=== PATIENT | female | born 1955 | race African-American/Black ===

== ENCOUNTER 2016-11-04 18:08 | Emergency (ER) | payer OTHER ==
[2016-11-04 15:10] LABS: BE (BASE EXCESS) 2.2 MEQ/L (0 +/- 2.5); CARBOXYHEMOGLOBIN 1.6 % (0-3); DEVICE Nasal Cannula 2.5; HCO3 (ACTUAL BICARBONATE) 26.9 MEQ/L (23-27); HEMOBLOGIN CONTENT 14.2 G/DL (12-16); INSTRUMENT SERIAL # 8087; METHEMOGLOBIN 0.2 % (0-3); O2 CONTENT 18.8 VOL% (18-24); OPERATOR ID 14335; PCO2 (CO2 TENSION) 42 MMHG (35-45); PO2 (O2 TENSION) 79 MMHG (79-93); SAMPLE Arterial; pH 7.42 (7.37-7.43)
[2016-11-04 15:11] LABS: ALLENS TEST Pos
[2016-11-04 16:55] LABS: BASOPHILS 0.1 %; BASOPHILS ABSOLUTE 0.01 10/3/uL (0.0-0.16); EOSINOPHILS 0.4 %; EOSINOPHILS ABSOLUTE 0.03 10/3/uL (0.0-0.53); ER CBC TAT 0 Hrs 12 Mins; HEMOGLOBIN 14.3 g/dL (12.0-16.0); IMMATURE GRANULOCYTES 0.1 %; IMMATURE GRANULOCYTES ABSOLUTE 0.01 10/3/uL (0.0-0.11); LYMPHOCYTES 66.4 %; LYMPHOCYTES ABSOLUTE 5.65 10/3/uL (0.67-4.30); MEAN CORPUS HGB CONC 32.5 g/dL (32.0-36.0); MEAN CORPUSCULAR HEMOGLOB 29.8 pg (26.0-34.0); MEAN CORPUSCULAR VOLUME 91.7 fL (80-100); MONOCYTES 7.5 %; MONOCYTES ABSOLUTE 0.64 10/3/uL (0.21-1.20); NEUTROPHILS 25.5 %; NEUTROPHILS ABSOLUTE 2.17 10/3/uL (2.02-8.40); PLATELET COUNT 264 10/3/uL (150-400); RBC DISTRIBUTION WIDTH 14.1 % (12.0-16.0); WHITE BLOOD CELLS 8.5 10/3/uL (4.5-10.5)
[2016-11-04 16:56] LABS: MANUAL DIFF NO %
[2016-11-04 17:02] LABS: PARTIAL THROMBO TIME 25.2 SEC (22.5-37.2); PROTIME (NOT ORD) 12.9 SEC (12.0-14.5)
[2016-11-04 17:07] LABS: ALBUMIN 3.9 G/DL (3.5-5.0); ALKALINE PHOSPHATASE 46 U/L (45-117); BUN (BLOOD UREA NITROGEN) 13 MG/DL (6-23); CALCIUM, SERUM 9.3 MG/DL (8.5-10.4); CHEST PAIN PROFILE TAT 0 Hrs 24 Mins; CHLORIDE, SERUM 102 MMOL/L (96-112); CO2 (CARBON DIOXIDE) 31 MMOL/L (24-34); CREATININE 0.94 MG/DL (0.55-1.02); DIRECT BILIRUBIN < 0.1 MG/DL (0.0-0.4); GFR AFRICAN AMERICAN 75 ML/MIN (>=60); GFR NON AFRICAN AMERICAN 65 ML/MIN (>=60); GLUCOSE, SERUM 103 MG/DL (60-99); INDIRECT BILIRUBIN(NOT ORDER) 0.3 MG/DL (0.1-0.9); POTASSIUM, SERUM 3.6 MMOL/L (3.5-5.3); SGOT(AST) 22 U/L (5-40); SGPT(ALT) 23 U/L (5-65); SODIUM, SERUM 143 MMOL/L (135-148); TOTAL BILIRUBIN 0.4 MG/DL (0-1.2); TOTAL PROTEIN 7.7 G/DL (6.0-8.5); TROPONIN I <0.02 NG/ML (<0.05)
[2016-11-04 17:13] LABS: ER DIFF TAT 0 Hrs 30 Mins; LYMPHOCYTES 71 %; LYMPHOCYTES ABSOLUTE (CALC) 6.04 10/3/uL (0.67-4.30); MONOCYTES 5 %; MONOCYTES ABSOLUTE (CALC) 0.43 10/3/uL (0.21-1.20); NEUTROPHILS ABSOLUTE (CALC) 2.04 10/3/uL (2.02-8.40); PLATELET ESTIMATE ADQ (ADEQUATE); SEGMENTED NEUTROPHIL (0) 24 %; TOTAL NUCLEATED CELLS 100
[~2016-11-04 18:08] MED LIST: ACET500CAP PO; ADVIL PO; ALEVE220 MG PO; CELEXA20 PO; CELEXA40 MG PO; COMBIVENT RESPIM4 GM; CYANO1000T PO; DSS PO; DURA12; DURA12 TOP; DURA25 TOP; DURA50 TOP; ENDOCET1 TA1 PO; ESTRACE1 MG PO; FLEX PO; FLONASE NAS; HCTZ25B PO; HYDROCHLOROT25 MG PO; KLONO1 PO; LEVAQUIN750 MG PO; LIOR10 PO; MAGOX4 PO; MIRALAXPKT PO; MURINE EYE DROPS OP; NEUR800 PO; OMEGA PO; OXYIR5 MG PO; P20 PO; PREM625 PO; PROAIR HFA INH; SPIRIVA INH; STERAPRED DS10 MG; SYMBICORT 160/41 INH INH; WELLSR150 PO; WELLXL150 PO; X5 PO; ZESTORETIC1 TAB PO; ZOFRAN ODT4 MG PO; [UNRECOGNIZED DRUG - OTHER]
[2016-11-04] MEDS ORDERED: FLOVENT110 INH (19:08)
[2016-11-04] MEDS ORDERED: CELEXA20 PO (19:10)
[2016-11-04] MEDS ORDERED: DURA50 TOP (19:10)
[2016-11-04] MEDS ORDERED: FLONASE NAS (19:10)
[2016-11-04] MEDS ORDERED: HYDROCHLOROT25 MG PO (19:11)
[2016-11-04] MEDS ORDERED: PRINZIDE1 TAB PO (19:11)
[2016-11-04] MEDS ORDERED: PULRESP1 INH (19:11)
[2016-11-04] MEDS ORDERED: ESTRACE1 MG PO (19:12)
[2016-11-04] MEDS ORDERED: VITAMIN D PO (19:12)
[2016-11-04] MEDS ORDERED: COMBIVENT RESPIM4 GM PO (19:12)
[2016-11-04] MEDS ORDERED: PROAIR HFA PO (19:12)
[2016-11-04] MEDS ORDERED: TEARS PURE OPH (19:13)
[2016-11-04] MEDS ORDERED: ADVIL PO (19:14)
== END 2016-11-04 20:59 | disposition admitted as inpatient to this hospital (09) ==
LOC: ER 18:08
PROVIDERS: Emergency Medicine
DX: J44.1 Chronic obstructive pulmonary disease with (acute) exacerbation (principal); R00.2 Palpitations; M79.601 Pain in right arm; Z86.73 Personal history of transient ischemic attack (TIA), and cerebral infarction without residual deficits; Z86.718 Personal history of other venous thrombosis and embolism; Z87.891 Personal history of nicotine dependence; Z79.899 Other long term (current) drug therapy
CPT/HCPCS: 36600; 71010; 80048; 80076; 82805; 83735; 83880; 84484; 85025; 85610; 85730; 87040; 93005; 94640; 96374; 96375; 99285; A9270-GY; J2405; J2930